=== PATIENT | female | born 1960 | race Caucasian/White ===

== ENCOUNTER → 2017-06-03 | Outpatient (REF) ==
--- NOTE | 2017-06-03 15:21 | REP ---
Clinical: Pain and disability. Technique: AP, lateral, coned-down views of the lumbar spine. Findings: Three views of the lumbosacral spine demonstrate moderate multilevel degenerative changes including endplate sclerosis, marginal osteophytes and hypertrophic facet changes as well as grade 1 anterolisthesis at the L5-S1 level of approximately 6 mm. No acute fracture or compression injury. Impression: Moderate/advanced multilevel degenerative changes throughout the lumbosacral spine with grade 1 anterolisthesis at the L5-S1 level. Signed by Joe Kenney MD 06/03/2017 03:12 P
== END ==
LOC: M SMT 14:16
PROVIDERS: ATTEND Internal Medicine
DX: Z02.9 Encounter for administrative examinations, unspecified (principal)

== ENCOUNTER → 2020-03-07 | Outpatient (CLI) | payer OTHER ==
[~2020-03-07] MED LIST: METHACHOLINE KIT (J7674) INH ONE
--- NOTE | 2020-03-07 13:54 | PFTRPT ---
Height: 63.50 Inches Weight: 180.00 Lbs BSA: 1.86 Diagnosis: R05 DATE OF STUDY: 03/07/2020 ORDERED BY: Dr. Fernandez INTERPRETATION: Study of excellent technical quality. Under protocol, methacholine was administered. At a dose of 10 mg (63.875 CDUs), a 21% decline in the FEV1 was noted. PC of 7.40 does meet diagnostic criteria for a positive test. Flow rates did return to baseline post bronchodilator administration. IMPRESSION: Positive methacholine challenge study. MTDD
== END ==
LOC: M CARPUL 12:50
PROVIDERS: ATTEND Internal Medicine Pulmonary Disease
DX: R05 Cough (principal)
CPT/HCPCS: 94070; 95070; J7674